=== PATIENT | female | born 1955 | race Caucasian/White ===

== ENCOUNTER → 2017-01-05 | Outpatient (CLI) | payer MEDICARE, OTHER ==
[2017-01-05 11:38] LABS: BASO # 0.1 x10^3/uL (0.0-0.2); BASO % 1 % (0-3); EOS # 0.4 x10^3/uL (0.0-0.7); EOS % 5 % (0-3); HEMATOCRIT 42.9 % (36.0-47.0); HEMOGLOBIN 14.6 g/dL (12.0-15.5); LYMPH # 3.2 x10^3/uL (1.0-4.8); LYMPH % 35 % (24-48); MEAN CORPUSCULAR HEMOGLOBIN 31 pg (25-35); MEAN CORPUSCULAR HGB CONC 34 g/dL (31-37); MEAN CORPUSCULAR VOLUME 91 fL (79-100); MONO # 0.6 x10^3/uL (0.0-1.1); MONO % 6 % (0-9); NEUT # 4.9 x10^3uL (1.8-7.7); NEUT % 53 % (31-73); PLATELET COUNT 359 x10^3/uL (140-400); RED BLOOD COUNT 4.75 x10^6/uL (3.50-5.40); RED CELL DISTRIBUTION WIDTH 14.5 % (11.5-14.5); WHITE BLOOD COUNT 9.1 x10^3/uL (4.0-11.0)
[2017-01-05 11:47] LABS: ALBUMIN 3.8 g/dL (3.4-5.0); CALCIUM 9.6 mg/dL (8.5-10.1); CREATININE 0.5 mg/dL (0.6-1.0); TOTAL BILIRUBIN 0.4 mg/dL (0.2-1.0); TOTAL PROTEIN 7.7 g/dL (6.4-8.2)
[2017-01-05 11:55] LABS: POTASSIUM 3.6 mmol/L (3.5-5.1)
--- NOTE | 2017-01-05 12:37 | RAD ---
Examination: Ultrasound left lower extremity venous duplex History: History of left leg swelling Comparison: None available Technique: Grayscale, color Doppler 2-D, spectral waveform analysis of the left lower extremity venous system were performed Findings: The visualized common femoral vein, superficial femoral vein, popliteal vein demonstrate normal compression and augmentation of flow. The visualized calf veins are patent. Impression: No evidence of deep venous thrombosis identified in the left lower extremity venous system.
--- NOTE | 2017-01-05 13:14 | RAD ---
Examination: Ultrasound left leg History: History of left leg swelling Comparison: None available Findings: There are tortuous appearing vasculature identified in the distal medial thigh and proximal medial calf region likely varicosities. 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
[2017-01-05 18:08] LABS: HEMOGLOBIN A1C 5.3 % (4.8-5.6)
== END | disposition home or self-care (01) ==
LOC: US 10:42
PROVIDERS: ATTEND Family Medicine
DX: I83.813 Varicose veins of bilateral lower extremities with pain (principal); R19.5 Other fecal abnormalities; R73.09 Other abnormal glucose
CPT/HCPCS: 36415; 76881; 80053; 83036; 85025; 93971

== ENCOUNTER → 2017-12-26 | Outpatient (CLI) | payer MEDICARE, OTHER ==
--- NOTE | 2017-12-26 13:45 | RAD ---
EXAM: Left hip, 2 views. HISTORY: Pain. COMPARISON: None. FINDINGS: Frontal and frog-leg views of the left hip are obtained. There is severe hip joint space narrowing. There is degenerative subchondral sclerosis and subchondral cyst formation. There is mild marginal femoral head spurring. There is bilateral sacroiliac joint subchondral sclerosis and vacuum phenomenon. IMPRESSION: 1. Mild to moderate degenerative change involving the left hip, with near complete loss of the superior hip joint space. 2. Degenerative change involving the sacroiliac joints. Electronically signed by: Marni Marti MD (12/26/2017 1:42 PM) [place] [id number]
--- NOTE | 2017-12-26 15:17 | RAD ---
2 views of the left knee without comparison for leg pain, no known injury. FINDINGS: There is no fracture, dislocation, or acute osseous abnormality identified. No significant degenerative changes are identified. There is a 1 cm ovoid lucency along the lateral aspect of the lateral tibial plateau, with no distinctly suspicious features. This is seen only on the frontal projection, and is likely benign such as an early subchondral cyst. If the pain is localizable to this aspect of the knee however, further evaluation with CT or MRI should be considered. No radiopaque foreign bodies are seen. No suprapatellar joint effusion. IMPRESSION: 1. No acute osseous abnormality. 2. 1 cm lucency along the lateral aspect of the lateral tibial plateau which is most likely benign and clinically inconsequential. However if the patient's pain is immediately localizable to the lateral tibial plateau on examination, further evaluation with CT or MRI should be considered. Electronically signed by: Abisai Veloz MD (12/26/2017 3:14 PM) [id number]
== END | disposition home or self-care (01) ==
LOC: RAD 13:15
PROVIDERS: ATTEND Anesthesiology
DX: M16.12 Unilateral primary osteoarthritis, left hip (principal); M25.562 Pain in left knee; M47.898 Other spondylosis, sacral and sacrococcygeal region
CPT/HCPCS: 73502; 73560

== ENCOUNTER → 2017-12-26 | Outpatient (CLI) | payer MEDICARE, OTHER | END | disposition home or self-care (01) | LOC: SURG 11:31 | PROVIDERS: ATTEND Anesthesiology | DX: M54.16 Radiculopathy, lumbar region (principal); M25.562 Pain in left knee; R73.03 Prediabetes; M19.90 Unspecified osteoarthritis, unspecified site; R51 Headache | CPT/HCPCS: 99204 ==

== ENCOUNTER → 2018-01-09 | Outpatient (CLI) | payer MEDICARE, OTHER | END | disposition home or self-care (01) | LOC: SURG 11:35 | PROVIDERS: ATTEND Anesthesiology | DX: I10 Essential (primary) hypertension (principal) | CPT/HCPCS: 99213 ==

== ENCOUNTER → 2018-03-27 | Outpatient (CLI) | payer MEDICARE, OTHER ==
[~2018-03-27] MED LIST: BUPIVACAINE MPF 0.25% 30 ML VIAL. ONE; LIDOCAINE 1% PF 30 ML VIAL. ONE; methylPREDNISolone ACETATE 40 MG/ML VIAL. ONE
== END | disposition home or self-care (01) ==
LOC: SURG 08:51
PROVIDERS: ATTEND Anesthesiology
DX: M16.12 Unilateral primary osteoarthritis, left hip (principal); M54.16 Radiculopathy, lumbar region; J32.9 Chronic sinusitis, unspecified; M62.81 Muscle weakness (generalized); R51 Headache; R73.03 Prediabetes; H54.7 Unspecified visual loss; Z98.890 Other specified postprocedural states; Z90.710 Acquired absence of both cervix and uterus; Z79.899 Other long term (current) drug therapy
CPT/HCPCS: 20610; 77002; J1030; J2001; J3490

== ENCOUNTER 2020-12-18 10:45 | Emergency (ER) | payer MEDICARE, OTHER ==
[~2020-12-18] VITALS: Ht 154.9 cm; Wt 88.6 kg
[2020-12-18 11:16] VITALS: BP 153/83
--- NOTE | 2020-12-18 11:17 | PHYS DOC ---
General Adult EDM: Chief Complaint: HAND PROBLEM HPI: HPI: Patient is a 65-year-old female who presents to the emergency department for right hand pain after hitting it on a table while attempting to swat a fly last night. Patient reports that most of her pain is noted to the palmar aspect of her hand proximal to her thumb. Patient reports decreased range of motion of thumb. Patient denies any decreased sensation to hand, wounds. Review of Systems: Review of Systems: 14 body systems of the review of systems have been reviewed. See HPI for pertinent positive and negative responses, otherwise all other systems are negative, nonpertinent or noncontributory Physical Exam: PE: Constitutional: Well developed, well nourished, no acute distress, non-toxic appearance. [] HENT: Normocephalic, atraumatic Eyes: PERRL, EOMI, conjunctiva normal, no discharge. [] Neck: Normal range of motion, no stridor Cardiovascular: Normal peripheral perfusion Lungs & Thorax: Normal work of breathing, no tachypnea Abdomen: Soft and flat Skin: Warm, dry, no erythema, no rash, swelling and ecchymosis noted to the palmar aspect of patient's right hand proximal to her thumb, no visible wounds. [] Back: Normal range of motion Extremities: No tenderness, no cyanosis, no clubbing, ROM intact, no edema. Right hand: Swelling noted, pain with palpation to palmar aspect of right hand proximal to thumb, full range of motion of fingers to through 5, limited flexion of right thumb due to pain, neuro intact, no obvious deformities Neurologic: Alert and oriented X 3, normal motor function, normal sensory function, no focal deficits noted. [] Psychologic: Affect normal, judgement normal, mood normal. [] EKG: EKG: [] Radiology/Procedures: Radiology/Procedures: []PROCEDURE: HAND RIGHT 3V Site ID: [id number] EXAMINATION: XR HAND_RIGHT 3 VIEWS. HISTORY: 65 years Female Reason: HAND INJURY, HIT HAND ON COUNTER LAST NIGHT COMPARISON: None. FINDINGS: No fracture, dislocation or radiopaque foreign body. Degenerative changes at the interphalangeal joints and at the carpometacarpal joint at the base of the thumb seen. IMPRESSION: Degenerative changes. No fracture seen. Electronically signed by: Jory Cadena MD (12/18/2020 11:31 AM) [id number] DICTATED AND SIGNED BY: JORY CADENA MD DATE: 12/18/20 1129 CC: EMERGENCY,DEPARTMENT; ASHIA SCHULTE MD; JESSICA CENTENO APRN ~MTH0 0 Heart Score: C/O Chest Pain: N/A Risk Factors: Risk Factors: DM, Current or recent (<one month) smoker, HTN, HLP, family h istory of CAD, obesity. Risk Scores: Score 0 - 3: 2.5% MACE over next 6 weeks - Discharge Home Score 4 - 6: 20.3% MACE over next 6 weeks - Admit for Clinical Observation Score 7 - 10: 72.7% MACE over next 6 weeks - Early Invasive Strategies Course & Med Decision Making: Course & Med Decision Making Pertinent Labs and Imaging studies reviewed. (See chart for details) [] Patient is a 65-year-old female who presents to the emergency department for a right hand injury. An x-ray was performed in the ER that showed no acute fracture but degenerative changes. Patient educated on the rice protocol. Patient's hand placed in Yoandy wrap and she was given ice pack in the ER. Patient advised to take Tylenol and ibuprofen at home and follow-up with primary care provider. I discussed with patient all findings and diagnostic testing as well as the need to follow-up with PCP for further evaluation and treatment or return to the ER if any new or worsening symptoms. Strict return precautions were also discussed at length. Patient voiced understanding and agreement with the plan. Patient is hemodynamically stable at the time of disposition. Dragon Disclaimer: Dragon Disclaimer: This electronic medical record was generated, in whole or in part, using a voice recognition dictation system. Departure Departure: Impression: Primary Impression: Hand contusion Qualified Codes: S60.221A - Contusion of right hand, initial encounter Disposition: HOME / SELF CARE / HOMELESS Condition: GOOD Referrals: ASHIA SCHULTE MD (PCP) Patient Instructions: RICE - Routine Care for Injuries Additional Instructions: You are seen in the emergency department today for right hand injury. An x-ray was performed that showed []. JESSICA CENTENO APRN Dec 18, 2020 11:17
--- NOTE | 2020-12-18 11:33 | RAD ---
Site ID: [id number] EXAMINATION: XR HAND_RIGHT 3 VIEWS. HISTORY: 65 years Female Reason: HAND INJURY, HIT HAND ON COUNTER LAST NIGHT COMPARISON: None. FINDINGS: No fracture, dislocation or radiopaque foreign body. Degenerative changes at the interphalangeal j oints and at the carpometacarpal joint at the base of the thumb seen. IMPRESSION: Degenerative changes. No fracture seen. Electronically signed by: Julio Cadena MD (12/18/2020 11:31 AM) [id number]
== END 2020-12-18 11:45 | disposition home or self-care (01) ==
LOC: ER 10:45
DX: S60.221A Contusion of right hand, initial encounter (principal); W22.03XA Walked into furniture, initial encounter; Y93.89 Activity, other specified; Y92.89 Other specified places as the place of occurrence of the external cause; Y99.8 Other external cause status
CPT/HCPCS: 73130; 99283-25

== ENCOUNTER → 2021-05-28 | Outpatient (CLI) | payer MEDICARE, OTHER ==
[2021-05-28 13:00] LABS: BASO # 0.1 x10^3/uL (0.0-0.2); BASO % 1 % (0-3); EOS # 0.4 x10^3/uL (0.0-0.7); EOS % 4 % (0-3); LYMPH # 2.9 x10^3/uL (1.0-4.8); LYMPH % 36 % (24-48); MEAN CORPUSCULAR HEMOGLOBIN 30 pg (25-35); MEAN CORPUSCULAR HGB CONC 33 g/dL (31-37); MEAN CORPUSCULAR VOLUME 91 fL (79-100); MONO # 0.5 x10^3/uL (0.0-1.1); MONO % 7 % (0-9); NEUT # 4.2 x10^3uL (1.8-7.7); NEUT % 52 % (31-73); PLATELET COUNT 360 x10^3/uL (140-400); RED CELL DISTRIBUTION WIDTH 14.6 % (11.5-14.5); WHITE BLOOD COUNT 8.1 x10^3/uL (4.0-11.0)
[2021-05-28 13:21] LABS: ALBUMIN 3.8 g/dL (3.4-5.0); ALBUMIN/GLOBULIN RATIO 1.2 (1.0-1.7); CALCIUM 8.9 mg/dL (8.5-10.1); CREATININE 0.4 mg/dL (0.6-1.0); GFR 159.2; POTASSIUM 3.4 mmol/L (3.5-5.1); TOTAL BILIRUBIN 0.4 mg/dL (0.2-1.0); TOTAL PROTEIN 7.1 g/dL (6.4-8.2)
--- NOTE | 2021-06-01 01:39 | EKG ---
[address] [address] Test Date: 2021-05-28 Test Time: 12:31:26 Pat Name: ANUP SOTO Department: Room: Gender: F Lift Mechanic: : 1955 Requested By: JENA LEE Order Number: [id number] Reading MD: Measurements Intervals [place] Rate: 102 P: -47 MA: 146 QRS: -17 QRSD: 98 T: 150 QT: 346 QTc: 455 Interpretive Statements SINUS TACHYCARDIA LEFTWARD AXIS QRS(T) CONTOUR ABNORMALITY CONSISTENT WITH INFERIOR INFARCT PROBABLY OLD T ABNORMALITY IN HIGH LATERAL LEADS ABNORMAL ECG RI6.01 No previous ECG available for comparison
== END ==
LOC: LAB 12:06
PROVIDERS: ATTEND Orthopaedic Surgery
DX: M18.11 Unilateral primary osteoarthritis of first carpometacarpal joint, right hand (principal); Z20.822 Contact with and (suspected) exposure to COVID-19
CPT/HCPCS: 80053; 85025; 87641; U0003